=== PATIENT | male | born 1940 | race Caucasian/White ===

== ENCOUNTER → 2017-10-26 | Outpatient (CLI) | payer OTHER | LOC: BHFA 09:30 | PROVIDERS: ATTEND Internal Medicine Cardiovascular Disease | DX: I48.91 Unspecified atrial fibrillation (principal); R06.02 Shortness of breath | CPT/HCPCS: 78452; 93017; A9500 ==

== ENCOUNTER → 2017-11-02 | Outpatient (CLI) | payer OTHER | LOC: BHFA 10:45 | PROVIDERS: ATTEND Internal Medicine | DX: I48.91 Unspecified atrial fibrillation (principal) ==

== ENCOUNTER → 2017-11-03 | Outpatient (CLI) | payer OTHER | LOC: BHFA 10:45 | PROVIDERS: ATTEND Internal Medicine | DX: R42 Dizziness and giddiness (principal); E78.5 Hyperlipidemia, unspecified ==

== ENCOUNTER 2018-04-05 18:22 | Emergency (ER) | payer OTHER ==
--- NOTE | 2018-04-05 19:53 | EDPHY ---
H & P Stated Complaint: AVULSION TIP OF INDEX FINGER L HAND Time Seen by Provider: 04/05/18 18:38 HPI/ROS: CHIEF COMPLAINT: Finger injury HISTORY OF PRESENT ILLNESS: The patient is an anticoagulated and right-hand dominant 78 y/o male arriving with his complaining of an avulsion along the tip of his left index finger. 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 He has been able to control bleeding with direct pressure. No nail injury. No weakness, paresthesias, or other injuries. REVIEW OF SYSTEMS: A 10 point review of systems was performed and is negative with the exception of the elements mentioned in the history of present illness. Past medical history: Atrial fibrillation - Xarelto; hypertension; sleep apnea - CPAP Past surgical history: Noncontributory Family history: Noncontributory Social history: Right-handed. at bedside. Nonsmoker. Consultant In Ergonomics And Safety: Dr. Worley. PCP: Dr. Nehemias Kuhn. Adult Physical: General Appearance: Alert, no acute distress. Eyes: Pupils equal and round, no conjunctival injection, no discharge. Respiratory: Lungs are clear to auscultation; no wheezes, rales, or rhonchi. Cardiovascular: Irregularly irregular rate and rhythm; no murmur, rub, or gallop. Skin: Warm and dry, no rashes, normal color. Extremities: No lower extremity edema, no calf tenderness or swelling. Left hand: Avulsion injury to tip of left index finger, no active bleeding. No nail involvement. Normal flexion and extension of all digits. Normal sensation. Neurological: Alert and oriented. Moving all four extremities easily and equally. Psychiatric: Normal affect. - Personal History Current Tetanus Diphtheria and Acellular Pertussis (TDAP): Yes Tetanus Vaccine Date: WITHIN 10 Y - Medical/Surgical History Hx Asthma: No Hx Chronic Respiratory Disease: No Hx Diabetes: No Hx Cardiac Disease: Yes Hx Renal Disease: No Hx Cirrhosis: No Hx Alcoholism: No Hx HIV/AIDS: No Hx Splenectomy or Spleen Trauma: No Other PMH: A FIB - Social History Smoking Status: Never smoked Constitutional: Initial Vital Signs Temperature (C) 36.8 C 04/05/18 18:26 Heart Rate 114 H 04/05/18 18:26 Respiratory Rate 20 04/05/18 18:26 Blood Pressure 115/72 04/05/18 18:26 O2 Sat (%) 97 04/05/18 18:26 O2 Delivery Mode Room Air Allergies/Adverse Reactions: No Known Allergies Allergy (Unverified 09/20/10 11:26) Home Medications: Medication Instructions Recorded Digoxin [Lanoxin] 0.125 mg PO MOTUWETHFRSA 01/20/13 Losartan Potassium [Cozaar] 25 mg PO DAILY 01/20/13 Multivitamins [Tab-A-Mick] 1 each PO DAILY 01/20/13 Omeprazole [Prilosec 20 mg] 20 mg PO DAILY 01/20/13 Fluticasone Nasal [Flonase Nasal 1 sprays NASAL DAILY PRN 05/19/13 [place] (RX)] Rivaroxaban [Xarelto 10mg (RX)] 20 mg PO DAILY18 05/19/13 Metoprolol Succinate Xr [Toprol Xl 100 mg PO DAILY 06/20/13 50 mg (RX)] Medical Decision Making ED Course/Re-evaluation: Plan for wound care. Digital block performed by me. Wound then cleaned and dressed by ED hemodialysis technician. Wound care instructions given. Danger signs reviewed. Differential Diagnosis: Considered a differential diagnosis that includes but is not limited to fracture , dislocation, avulsion injury, laceration, retained foreign body. - Data Points Medications Given: Discontinued Medications Diphtheria/Tetanus/Acell Pertussis (Boostrix) 0.5 ml IM .ONCE ONE Stop: 04/05/18 20:40 Last Admin: 04/05/18 20:39 Dose: 0.5 ml Departure - Departure Disposition: Home, Routine, Self-Care Clinical Impression: Avulsion, finger tip Qualifiers: Encounter type: initial encounter Qualified Code(s): S61.209A - Unspecified open wound of unspecified finger without damage to nail, initial encounter Condition: Good Instructions: Skin Avulsion (ED) Additional Instructions: Keep bandage dry and in place for the next 24-48 hours. Afterwards, okay to clean the area gently with soap and water. Recommend covering with a thin layer of Bacitracin and a bandage while healing. Follow up with Dr. Carolina, orthopedist and hand specialist, for any difficulty during the healing process. Return to the ED for severe pain, fever, red streaking up your arm, dramatic increase in swelling, or any other worsening of condition. Referrals: Nehemias Kuhn MD [Primary Care Provider] - As per Instructions Enrico Carolina MD [Medical Doctor] - As per Instructions Report Scribed for: Maxine La Report Scribed by: Peg Worley Date of Report: 04/05/18 Time of Report: 19:53 Physician Review and Approval Statement: 04/08/18 08:30 Portions of this chart were entered by a medical accounting clerk. I personally performed the HPI, PE, and MDM. I have reviewed the documentation and agree with it, as evidenced by my signature.
[2018-04-05] MEDS ORDERED: TDAP ADULT 0.5 ML INJ (BOOSTRIX) IM ONE ×2 (20:11→20:39)
[2018-04-05 20:59] VITALS: BP 132/74
== END 2018-04-05 21:00 | disposition home or self-care (01) ==
PROC: 3E0T3BZ Introduction of Anesthetic Agent into Peripheral Nerves and Plexi, Percutaneous Approach (ICD-10-PCS; principal; 2018-04-05)
DX: S61.201A Unspecified open wound of left index finger without damage to nail, initial encounter (principal); I10 Essential (primary) hypertension; Z23 Encounter for immunization; Z79.01 Long term (current) use of anticoagulants; W26.8XXA Contact with other sharp object(s), not elsewhere classified, initial encounter

== ENCOUNTER → 2018-06-07 | Outpatient (CLI) | payer OTHER | LOC: BHFA 14:45 | PROVIDERS: ATTEND Internal Medicine Interventional Cardiology | DX: I48.91 Unspecified atrial fibrillation (principal); I42.9 Cardiomyopathy, unspecified; R60.9 Edema, unspecified ==

== ENCOUNTER → 2018-06-09 | Outpatient (CLI) | payer OTHER | LOC: BHFA 15:30 | PROVIDERS: ATTEND Internal Medicine Interventional Cardiology | DX: I50.9 Heart failure, unspecified (principal); I48.91 Unspecified atrial fibrillation; R06.02 Shortness of breath ==

== ENCOUNTER → 2018-06-13 | Outpatient (CLI) | payer OTHER | LOC: BHFA 11:45 | PROVIDERS: ATTEND Internal Medicine Interventional Cardiology | DX: I48.91 Unspecified atrial fibrillation (principal); I42.9 Cardiomyopathy, unspecified ==

== ENCOUNTER 2018-06-14 06:56 | Day surgery (SDC) | payer OTHER ==
[2018-06-14] MEDS ORDERED: MIDAZOLAM 2 MG/2 ML VIAL IVP ONE (06:59)
[2018-06-14] MEDS ORDERED: fentaNYL 100 MCG/2 ML INJ IVP ONE (06:59)
[2018-06-14] MEDS ORDERED: BENZOCAINE UNIT DOSE SPRAY HURRICAINE MM ONE (06:59)
[2018-06-14] MEDS ORDERED: ATROPINE SULFATE 1 MG/10 ML SYR IVP ONE (06:59)
[2018-06-14] MEDS ORDERED: NS 500 ML IV ONE (06:59)
[2018-06-14 07:40] LABS: INR 2.6 (0.83-1.16); PROTIME(PATIENT) 27.8 SEC (12.0-15.0)
--- NOTE | 2018-06-14 08:24 | POSTANESTH ---
Post Anesthetic Evaluation Cardiovascular Status: Normal, Stable, Similar to Pre-Op Cond Respiratory Status: Normal, Stable Level of Consciousness/Mental Status: Moderately Sleepy Pain Control: Adequate, Prn Tx Ordered Nausea/Vomiting Control: Adequate, Prn Tx Ordered Complications Possibly Related to Anesthesia: None Noted
--- NOTE | 2018-06-14 08:24 | PDANEPAE ---
ANE History of Present Illness a fib for LAYO/CV ANE Past Medical History - Cardiovascular History Hx Hypertension: Yes Hx Arrhythmias: Yes Hx Chest Pain: No Hx Coronary Artery / Peripheral Vascular Disease: No Hx CHF / Valvular Disease: Yes Hx Palpitations: Yes - Pulmonary History Hx COPD: No Hx Asthma/Reactive Airway Disease: No Hx Oxygen in Use at Home: No Hx Sleep Apnea: Yes - Endocrine History Hx Diabetes: No ANE Review of Systems Review of systems is: negative Review of Systems: - Exercise capacity Exercise capacity: >=4 METS ANE Patient History - Allergies Allergies/Adverse Reactions: No Known Allergies Allergy (Unverified 09/20/10 11:26) - Home Medications Home medications: home medication list seen and reviewed Home Medications: Digoxin [Lanoxin] 0.125 mg PO MOTUWETHFRSA 01/20/13 [Last Taken 06/13/18 07:30] Losartan Potassium [Cozaar] 25 mg PO DAILY 01/20/13 [Last Taken 06/13/18 07:30] Multivitamins [Tab-A-Mick] 1 each PO DAILY 01/20/13 [Last Taken 06/13/18 07:30] Omeprazole [Prilosec 20 mg] 20 mg PO DAILY 01/20/13 [Last Taken 06/13/18 07:30] Fluticasone Nasal [Flonase Nasal [place] (RX)] 1 sprays NASAL DAILY PRN 05/19/13 [ Last Taken 06/20/13] Rivaroxaban [Xarelto 10mg (RX)] 20 mg PO DAILY18 05/19/13 [Last Taken 06/14/18 07:00] Metoprolol Succinate Xr [Toprol Xl 50 mg (RX)] 100 mg PO DAILY 06/20/13 [Last Taken 06/14/18 06:30] Lasix 06/14/18 [Last Taken 06/13/18 18:00] - Anes Hx Anes Hx: no prior problems - Smoking Hx Smoking Status: Never smoked ANE Labs/Vital Signs - Labs Result Diagrams: 06/14/18 07:20 - Vital Signs Height: 177.8 cm Weight: 82.1 kg ANE Physical Exam - Airway Neck exam: FROM Mallampati Score: Class 1 Mouth exam: normal dental/mouth exam - Pulmonary Pulmonary: no respiratory distress - Cardiovascular Cardiovascular: regular rate and rhythym - ASA Status ASA Status: III ANE Anesthesia Plan Anesthesia Plan: GA with mask
[2018-06-14] MEDS ORDERED: PROPOFOL 200 MG/20 ML VIAL ONE (08:27)
--- NOTE | 2018-06-14 08:35 | PDHPUP ---
History & Physical Update H&P update statement: This history and physical update is based on an assessment of the patient which was completed after admission or registration (within 24 hours), but prior to the surgery/procedure. H&P update: H&P reviewed & patient examined, no change in patient's condition since H&P completed
[2018-06-14] MEDS ORDERED: AMIODARONE HCL 100 ML IV ONE ×4 (08:52→10:15)
--- NOTE | 2018-06-14 08:57 | PDTEE1 ---
LAYO Cardioversion Procedure Procedural Details: Pads were placed in anterior-posterior position. LAYO probe was advanced and standard images obtained. There is no evidence of left atrial or left atrial appendage thrombus. Synchronized cardioversion attempt #1: 200J Synchronized cardioversion attempt #2: 360J Results: normal sinus rhythm Conclusion Comment: Severe dilated cardiomyopathy with moderate to severe functional mitral regurgitation. Likely rate related. Return to sinus with persistant intermittant afib. Load amiodarone 150 mg iv now with 200 mg bid. Add aldactone Patient Problems: Problems Problem Status Onset Atrial fibrillation and flutter Active Jaundice Active Cholecystitis chronic, acute Acute Avulsion, finger tip Acute
[2018-06-14] MEDS ORDERED: AMIODARONE HCL 200 MG TAB PO SCH (09:00)
[2018-06-14] MEDS ORDERED: SPIRONOLACTONE 25 MG TAB PO SCH (09:00)
--- NOTE | 2018-06-14 16:52 | CPEKG ---
Test Reason : OPEN Blood Pressure : / mmHG Vent. Rate : 122 BPM Atrial Rate : 138 BPM P-R Int : 176 ms QRS Dur : 087 ms QT Int : 310 ms P-R-T Axes : 000 003 000 degrees QTc Int : 442 ms Atrial fibrillation Ventricular premature complex Consider left ventricular hypertrophy Nonspecific T abnormalities, lateral leads When compared with ECG of 01/21/2013 AF now present Confirmed by Ania English ([id number]) on 06/14/2018 4:52:26 PM Referred By: Confirmed By:Ania English
--- NOTE | 2018-06-14 16:56 | CPEKG ---
Test Reason : OPEN Blood Pressure : / mmHG Vent. Rate : 084 BPM Atrial Rate : 085 BPM P-R Int : 170 ms QRS Dur : 102 ms QT Int : 393 ms P-R-T Axes : 054 -03 102 degrees QTc Int : 465 ms Sinus rhythm Atrial premature complexes Borderline T wave abnormalities Compared with previous tracing dated 06/14/2018 at 7:16 a.m., sinus rhythm has been restored Confirmed by Ania English ([id number]) on 06/14/2018 4:56:19 PM Referred By: Confirmed By:Ania English
--- NOTE | 2018-06-14 16:57 | CPEKG ---
Test Reason : OPEN Blood Pressure : / mmHG Vent. Rate : 087 BPM Atrial Rate : 087 BPM P-R Int : 169 ms QRS Dur : 110 ms QT Int : 401 ms P-R-T Axes : 079 -10 058 degrees QTc Int : 483 ms Sinus rhythm prolonged QT interval Confirmed by Ania English ([id number]) on 06/14/2018 4:56:46 PM Referred By: Confirmed By:Ania English
--- NOTE | 2018-06-14 16:58 | CPEKG ---
Test Reason : OPEN Blood Pressure : / mmHG Vent. Rate : 128 BPM Atrial Rate : 129 BPM P-R Int : 083 ms QRS Dur : 085 ms QT Int : 418 ms P-R-T Axes : 262 -25 -88 degrees QTc Int : 610 ms Ectopic atrial tachycardia Prolonged QT interval compared with 06/14/2018 at 9:03 a.m. ectopic atrial tachycardia now present Confirmed by Ania English ([id number]) on 06/14/2018 4:58:03 PM Referred By: Confirmed By:Ania English
== END 2018-06-14 11:46 | disposition home or self-care (01) ==
LOC: FCATH 06:56
PROVIDERS: ATTEND Internal Medicine Interventional Cardiology
PROC: B245ZZ4 Ultrasonography of Left Heart, Transesophageal (ICD-10-PCS; principal; 2018-06-14)
PROC: 5A2204Z Restoration of Cardiac Rhythm, Single (ICD-10-PCS; principal; 2018-06-14)
DX: I48.1 Persistent atrial fibrillation (principal); I42.0 Dilated cardiomyopathy; I34.0 Nonrheumatic mitral (valve) insufficiency; I50.20 Unspecified systolic (congestive) heart failure
CPT/HCPCS: J0282; J2704

== ENCOUNTER 2018-08-01 13:05 | Day surgery (SDC) | payer OTHER ==
[2018-08-01] MEDS ORDERED: NS 500 ML IV ONE (13:18)
[2018-08-01] MEDS ORDERED: MIDAZOLAM 2 MG/2 ML VIAL IVP ONE (13:18)
[2018-08-01] MEDS ORDERED: fentaNYL 100 MCG/2 ML INJ IVP ONE (13:18)
[2018-08-01] MEDS ORDERED: ATROPINE SULFATE 1 MG/10 ML SYR IVP ONE (13:18)
--- NOTE | 2018-08-01 14:05 | PDANEPAE ---
ANE History of Present Illness Cardioversion ANE Past Medical History - Cardiovascular History Hx Hypertension: Yes Hx Arrhythmias: Yes Hx Chest Pain: No Hx Coronary Artery / Peripheral Vascular Disease: No Hx CHF / Valvular Disease: Yes Hx Palpitations: Yes - Pulmonary History Hx COPD: No Hx Asthma/Reactive Airway Disease: No Hx Oxygen in Use at Home: No Hx Sleep Apnea: Yes - Endocrine History Hx Diabetes: No - GI History GERD: mild ANE Review of Systems Review of systems is: negative Review of Systems: - Exercise capacity Exercise capacity: >=4 METS ANE Patient History - Allergies Allergies/Adverse Reactions: No Known Allergies Allergy (Unverified 09/20/10 11:26) - Home Medications Home medications: home medication list seen and reviewed Home Medications: Digoxin [Lanoxin] 0.125 mg PO MOTUWETHFRSA 01/20/13 [Last Taken 06/13/18 07:30] Losartan Potassium [Cozaar] 50 mg PO DAILY 01/20/13 [Last Taken 06/13/18 07:30] Multivitamins [Tab-A-Mick] 1 each PO DAILY 01/20/13 [Last Taken 06/13/18 07:30] Omeprazole [Prilosec 20 mg] 20 mg PO DAILY 01/20/13 [Last Taken 06/13/18 07:30] Fluticasone Nasal [Flonase Nasal [place] (RX)] 1 sprays NASAL DAILY PRN 05/19/13 [ Last Taken 06/20/13] Rivaroxaban [Xarelto 10mg (RX)] 20 mg PO DAILY18 05/19/13 [Last Taken 06/14/18 07:00] Metoprolol Succinate Xr [Toprol Xl 50 mg (RX)] 100 mg PO DAILY 06/20/13 [Last Taken 06/14/18 06:30] Lasix 20 mg PO DAILY 06/14/18 [Last Taken 06/13/18 18:00] Aldactone 25 mg PO DAILY 08/01/18 [Last Taken Unknown] Amiodarone HCl 200 mg PO 08/01/18 [Last Taken Unknown] Cozaar 50 mg PO DAILY 08/01/18 [Last Taken Unknown] Iron 65 mg PO DAILY 08/01/18 [Last Taken Unknown] Robaxin 500 mg (*) 500 mg PO 08/01/18 [Last Taken Unknown] - NPO status NPO Since - Solids (Date): 08/01/18 NPO Since - Solids (Time): 06:30 - Anes Hx Anes Hx: no prior problems - Smoking Hx Smoking Status: Never smoked - Family Anes Hx Family Anes Hx: none ANE Labs/Vital Signs - Labs Result Diagrams: 08/01/18 13:35 - Vital Signs Vital Signs: reviewed preoperatively; see RN documention for details Height: 180 cm Weight: 78.9 kg ANE Physical Exam - Airway Neck exam: FROM Mallampati Score: Class 2 Mouth exam: normal dental/mouth exam - Pulmonary Pulmonary: no respiratory distress - Cardiovascular Cardiovascular: irregularly irregular - ASA Status ASA Status: III
[2018-08-01 14:24] LABS: INR 1.29 (0.83-1.16); PROTIME(PATIENT) 16.3 SEC (12.0-15.0)
[2018-08-01] MEDS ORDERED: PROPOFOL 200 MG/20 ML VIAL ONE (15:20)
--- NOTE | 2018-08-01 15:32 | PDTEE1 ---
LAYO Cardioversion Procedure Procedure: electrical cardioversion Indications: atrial fibrillation Anticoagulation: xarelto Procedural Details: Pads were placed in anterior-posterior position. Synchronized cardioversion attempt #1: 200J Synchronized cardioversion attempt #2: 300J Results: normal sinus rhythm Patient Problems: Problems Problem Status Onset Atrial fibrillation and flutter Active Jaundice Active Cholecystitis chronic, acute Acute Avulsion, finger tip Acute
--- NOTE | 2018-08-01 15:50 | POSTANESTH ---
Post Anesthetic Evaluation Cardiovascular Status: Normal, Stable Respiratory Status: Normal, Stable Level of Consciousness/Mental Status: Can Participate in Eval Pain Control: Adequate, Prn Tx Ordered Nausea/Vomiting Control: Adequate, Prn Tx Ordered Complications Possibly Related to Anesthesia: None Noted
--- NOTE | 2018-08-01 17:16 | CPEKG ---
Test Reason : OPEN Blood Pressure : / mmHG Vent. Rate : 067 BPM Atrial Rate : 000 BPM P-R Int : 241 ms QRS Dur : 097 ms QT Int : 583 ms P-R-T Axes : 000 -05 006 degrees QTc Int : 616 ms Atrial fibrillation Prolonged QT interval Confirmed by Paige Yang ([id number]) on 08/01/2018 5:16:21 PM Referred By: Confirmed By:Paige Yang
--- NOTE | 2018-08-01 17:17 | CPEKG ---
Test Reason : OPEN Blood Pressure : / mmHG Vent. Rate : 054 BPM Atrial Rate : 056 BPM P-R Int : 197 ms QRS Dur : 125 ms QT Int : 539 ms P-R-T Axes : 048 -08 016 degrees QTc Int : 511 ms Sinus rhythm Atrial premature complex Nonspecific intraventricular conduction delay Minimal ST depression, lateral leads Confirmed by Paige Yang ([id number]) on 08/01/2018 5:17:20 PM Referred By: Confirmed By:Paige Yang
== END 2018-08-01 17:03 | disposition home or self-care (01) ==
LOC: FCATH 13:05
PROVIDERS: ATTEND Internal Medicine Interventional Cardiology
PROC: 5A2204Z Restoration of Cardiac Rhythm, Single (ICD-10-PCS; principal; 2018-08-01)
DX: I48.91 Unspecified atrial fibrillation (principal)
CPT/HCPCS: J2704

== ENCOUNTER 2018-08-31 09:37 | Day surgery (SDC) | payer OTHER ==
--- NOTE | 2018-08-31 10:09 | PDANEPAE ---
ANE Past Medical History - Cardiovascular History Hx Hypertension: Yes Hx Arrhythmias: Yes Hx Chest Pain: No Hx Coronary Artery / Peripheral Vascular Disease: No Hx CHF / Valvular Disease: Yes Hx Palpitations: Yes Cardiovascular History Comment: ATRIAL FIBRILLATION. CARDIOVERSION X2 MOST RECENT 08/08/18 - Pulmonary History Hx COPD: No Hx Asthma/Reactive Airway Disease: No Hx Recent Upper Respiratory Infection: No Hx Oxygen in Use at Home: No Hx Sleep Apnea: Yes Sleep Apnea Screening Result - Last Documented: Positive Pulmonary History Comment: UBALDO USES BIPAP - Neurologic History Hx Cerebrovascular Accident: No Hx Seizures: No Hx Dementia: No - Endocrine History Hx Diabetes: No - Renal History Hx Renal Disorders: No - Liver History Hx Hepatic Disorders: No - Neurological & Psychiatric Hx Hx Neurological and Psychiatric Disorders: No - Cancer History Hx Cancer: No - Congenital Disorder History Hx Congenital Disorders: No - GI History Hx Gastrointestinal Disorders: Yes Gastrointestinal History Comment: GERD. PREV COLONOSCOPY - Other Health History Other Health History: OSTEOARTHRITIS. NEW ANEMIA DX'D WITH RECENT. BLOOD TESTING - Chronic Pain History Chronic Pain: No - Surgical History Prior Surgeries: CARDIOVERSION 08/08/18. LT TOTAL KNEE. GIBSON. DAVIN SHLDR RTC. RT ING HERNIA. DAVIN CATARACT ANE Review of Systems Review of Systems: - Exercise capacity METS (RN): 4 METS ANE Patient History - Allergies Allergies/Adverse Reactions: No Known Allergies Allergy (Unverified 09/20/10 11:26) - Home Medications Home Medications: Digoxin [Lanoxin] 0.125 mg PO MOTUWETHFRSA 01/20/13 [Last Taken 08/01/18 07:00] Losartan Potassium [Cozaar] 25 mg PO DAILY 01/20/13 [Last Taken 08/01/18 07:00] Multivitamins [Tab-A-Mick] 1 each PO DAILY 01/20/13 [Last Taken 08/01/18 07:00] Omeprazole [Prilosec 20 mg] 20 mg PO DAILY 01/20/13 [Last Taken 08/01/18 07:00] Fluticasone Nasal [Flonase Nasal [place] (RX)] 1 sprays NASAL DAILY PRN 05/19/13 [ Last Taken 06/20/13] Rivaroxaban [Xarelto 10mg (RX)] 20 mg PO DAILY18 05/19/13 [Last Taken 07/31/18 17:30] Metoprolol Succinate Xr [Toprol Xl 50 mg (RX)] 100 mg PO DAILY 06/20/13 [Last Taken 08/01/18 07:00] Lasix 20 mg PO DAILY 06/14/18 [Last Taken 07/31/18 08:00] Aldactone 25 mg PO DAILY 08/01/18 [Last Taken 07/31/18 08:00] Amiodarone HCl 200 mg PO BID 08/01/18 [Last Taken 08/01/18 07:00] Iron 65 mg PO BID 08/01/18 [Last Taken 08/01/18 07:00] - NPO status NPO Since - Liquids (Date): 08/31/18 NPO Since - Liquids (Time): 08:00 NPO Since - Solids (Date): 08/30/18 NPO Since - Solids (Time): 20:00 - Smoking Hx Smoking Status: Never smoked ANE Labs/Vital Signs - Vital Signs Blood Pressure: 132/63 Heart Rate: 61 Respiratory Rate: 18 O2 Sat (%): 97 Height: 180.34 cm Weight: 79.832 kg ANE Physical Exam - Airway Neck exam: FROM Mallampati Score: Class 1 Mouth exam: normal dental/mouth exam - Pulmonary Pulmonary: clear to auscultation - Cardiovascular Cardiovascular: regular rate and rhythym - ASA Status ASA Status: III ANE Anesthesia Plan Anesthesia Plan: general endotracheal anesthesia, MAC
[2018-08-31] MEDS ORDERED: PROPOFOL/EMULSION 500 MG/50 ML BOTTLE IV ONE (10:14)
[2018-08-31] MEDS ORDERED: fentaNYL 100 MCG/2 ML INJ ONE (10:14)
[2018-08-31] MEDS ORDERED: LR 1,000 ML IV ONE (10:19)
--- NOTE | 2018-08-31 10:26 | PDGENHP ---
History & Physical Chief Complaint: iron deficiency anemia History of Present Illness: 78 yo male with new onset iron deficiency anemia. Episodic hematochezia. Pertinent Past, Social, Family History: CHF. Atrial fibrillation on xarelto. FH: negative for colon cancer. SH: No tobacco or ETOH Relevant Physical Exam: NAD. CTA B/L. RRR without m/r/g. GI soft. NABS. NT/ND Cardiorespiratory Assessment: REBECCA. EGD/Colonoscopy with MAC. ASA IV
[2018-08-31] MEDS ORDERED: HYDROCODONE/APAP 5/325 TAB PO PRN (10:38)
[2018-08-31] MEDS ORDERED: NALOXONE HCL 0.4 MG/ML INJ IVP PRN (10:38)
[2018-08-31] MEDS ORDERED: oxyCODONE IR 5 MG TAB PO PRN (10:38)
[2018-08-31] MEDS ORDERED: ONDANSETRON 4 MG/2 ML VIAL IVP PRN (10:38)
[2018-08-31] MEDS ORDERED: ACETAMINOPHEN 500 MG TAB PO PRN (10:38)
[2018-08-31] MEDS ORDERED: PROMETHAZINE HCL 25 MG/ML INJ IVP PRN (10:38)
[2018-08-31] MEDS ORDERED: DEXAMETHASONE 4 MG/ML VIAL IVP PRN (10:38)
[2018-08-31] MEDS ORDERED: fentaNYL 100 MCG/2 ML INJ IVP PRN (10:38)
--- NOTE | 2018-08-31 10:46 | GIREPORT ---
[facility] Surgical Services - Endoscopy Department Patient Name: Florencio Alvarado Procedure Date: 08/31/2018 10:26 AM Patient Type: Outpatient Attending MD/ ER Physician: Milton Caba MD Procedure: Upper GI endoscopy Indications: Iron deficiency anemia Providers: Milton Caba MD Medicines: Propofol per Anesthesia Complications: No immediate complications. Description of Procedure: After obtaining informed consent, the endoscope was passed under direct vision. Throughout the procedure, the patient's blood pressure, pulse, and oxygen saturations were monitored continuously. The Endoscope was intro duced through the mouth, and advanced to the second part of duodenum. [facility] er GI endoscopy was accomplished without difficulty. The patient tolerated th e procedure well. Findings: A non-obstructing Schatzki ring was found at the gastroesophageal junct ion. Multiple 10 to 20 mm pedunculated and sessile polyps with no bleeding a nd no stigmata of recent bleeding were found in the gastric fundus and in the gastric body. Biopsies were taken with a cold forceps for histology. The duodenal bulb, first portion of the duodenum and second portion of the duodenum were normal. Biopsies for histology were taken with a cold for ceps for evaluation of celiac disease. Estimated Blood Loss: Estimated blood loss: none. Estimated blood loss was minimal. Post Op Diagnosis: - Non-obstructing Schatzki ring. - Multiple gastric polyps. Biopsied. - Normal duodenal bulb, first portion of the duodenum and second portio n of the duodenum. Biopsied. - No cause for bleeding or iron deficiency anemia. - The gastric polyposis is quite diffuse and prominent but I feel benig n and not likely causing iron deficiency. Random biopsies of the gastric poly ps were taken to ensure they are fundic gland and benign. - The gastric polyposis is so diffuse as not to be endoscopically curab le (there would be no adequate way to remove all of these polyps endoscopically). - Hopefully the biopsies will be reassuringly fundic gland and therefor e not in need of resection. Recommendation: - Await pathology results. - Resume previous diet. - Continue present medications. - Patient has a contact number available for emergencies. The signs and symptoms of potential delayed complications were discussed with the pat ient. Return to normal activities tomorrow. Written discharge instructions we re provided to the patient. - Perform a colonoscopy today. - Thank you for allowing me to be involved in the care of your patient. - Return to referring physician as previously scheduled. - Thank you for allowing me to be involved in the care of your patient. Attending Participation: I personally performed the entire procedure without the assistance of a fellow, resident or surg ical microbiology lab assistant. Milton Caba MD Milton Caba MD 08/31/2018 10:45:30 AM This report has been signed electronicallyDavid MD Rosales Number of Addenda: 0 Note Initiated On: 08/31/2018 10:26 AM [email or web address]
--- NOTE | 2018-08-31 11:00 | GIREPORT ---
[facility] Surgical Services - Endoscopy Department Patient Name: Florencio Alvarado Procedure Date: 08/31/2018 10:27 AM Patient Type: Outpatient Attending / ER Physician: Milton Caba MD Procedure: Colonoscopy Indications: Iron deficiency anemia Providers: Milton Caba MD Medicines: Propofol per Anesthesia Complications: No immediate complications. Description of Procedure: After obtaining informed consent, the scope was passed under direct vis ion. Throughout the procedure, the patient's blood pressure, pulse, and oxyg en saturations were monitored continuously. The Colonoscope with irrigatio n channel was introduced through the anus and advanced to the cecum, identified by appendiceal orifice and ileocecal valve. The colonoscopy was performed without difficulty. The patient tolerated the procedure well. The quality of the bowel preparation was excellent. The ileocecal valve, appendiceal orifice, and rectum were photographed. Findings: Hemorrhoids were found on perianal exam. The digital rectal exam was normal. Pertinent negatives include normal sphincter tone and no palpable rectal lesions. Multiple small and large-mouthed diverticula were found in the sigmoid colon. The exam was otherwise without abnormality. Estimated Blood Loss: Estimated blood loss: none. Post Op Diagnosis: - Hemorrhoids found on perianal exam. - Diverticulosis in the sigmoid colon. - The examination was otherwise normal. - No specimens collected. Recommendation: - Repeat colonoscopy is not recommended for screening purposes. - Return to referring physician as previously scheduled. - Resume previous diet. - Continue present medications. - Resume Xarelto (rivaroxaban) at prior dose tomorrow. Refer to referri physician for further adjustment of therapy. - Thank you for allowing me to be involved in the care of your patient. Attending Participation: I personally performed the entire procedure without the assistance of a fellow, resident or surg ical assistant business manager. Milton Caba MD Milton Caba MD 08/31/2018 10:59:54 AM This report has been signed electronicallyDavid MD Rosales Number of Addenda: 0 Note Initiated On: 08/31/2018 10:27 AM Total Procedure Duration Time 0 hours 9 minutes 33 seconds [email or web address]
[2018-08-31 13:05] VITALS: BP 130/69
== END 2018-08-31 13:00 | disposition home or self-care (01) ==
LOC: FSGY 09:37
PROVIDERS: ATTEND Internal Medicine Gastroenterology
PROC: 0DJD8ZZ Inspection of Lower Intestinal Tract, Via Natural or Artificial Opening Endoscopic (ICD-10-PCS; principal; 2018-08-31 11:00)
PROC: 0DB68ZX Excision of Stomach, Via Natural or Artificial Opening Endoscopic, Diagnostic (ICD-10-PCS; 2018-08-31 11:00)
PROC: 0DB98ZX Excision of Duodenum, Via Natural or Artificial Opening Endoscopic, Diagnostic (ICD-10-PCS; 2018-08-31 11:00)
DX: K31.7 Polyp of stomach and duodenum (principal); D50.9 Iron deficiency anemia, unspecified
CPT/HCPCS: J2704; J3010

== ENCOUNTER 2018-11-01 13:54 | Day surgery (SDC) | payer OTHER ==
[2018-11-01] MEDS ORDERED: LR 1,000 ML IV ONE (14:28)
[2018-11-01] MEDS ORDERED: LIDOCAINE 1% 2 ML INJ ID PRN (14:28)
--- NOTE | 2018-11-01 15:05 | PDGENHP ---
History & Physical Chief Complaint: Iron deficiency anemia History of Present Illness: 78 yo male with iron deficiency anemia. Pertinent Past, Social, Family History: PMH: CAD, atrial fibrillation s/p cardiac ablation, HTN. PSH: Cardiac ablation, hernia repair, bilateral rotator cuff surgery. SH: No tob, rare ETOH. FH: CRC cousin Relevant Physical Exam: NAD. RRR without m/r/g. CTA B/L. Soft. NT/ND. NABS Cardiorespiratory Assessment: REBECCA. EGD with MAC and IV sedation. ASA III
--- NOTE | 2018-11-01 15:11 | PDANEPAE ---
ANE History of Present Illness egd ANE Past Medical History - Cardiovascular History Hx Hypertension: Yes Hx Arrhythmias: Yes Hx Chest Pain: No Hx Coronary Artery / Peripheral Vascular Disease: No Hx CHF / Valvular Disease: Yes Hx Palpitations: Yes Cardiovascular History Comment: ATRIAL FIBRILLATION. CARDIOVERSION X2 MOST RECENT 08/08/18. ABLATION X 2. CARDIOMYOPATHY. MV ISSUES. EF 20-25% - Pulmonary History Hx COPD: No Hx Asthma/Reactive Airway Disease: No Hx Recent Upper Respiratory Infection: No Hx Oxygen in Use at Home: No Hx Sleep Apnea: Yes Sleep Apnea Screening Result - Last Documented: Positive Pulmonary History Comment: UBALDO USES BIPAP - Neurologic History Hx Cerebrovascular Accident: No Hx Seizures: No Hx Dementia: No - Endocrine History Hx Diabetes: No Hypothyroid: No Hyperthyroid: No Obesity: mild - Renal History Hx Renal Disorders: No - Liver History Hx Hepatic Disorders: No - Neurological & Psychiatric Hx Hx Neurological and Psychiatric Disorders: No - Cancer History Hx Cancer: No - Congenital Disorder History Hx Congenital Disorders: No - GI History Hx Gastrointestinal Disorders: Yes Gastrointestinal History Comment: GERD. PREV COLONOSCOPY - Other Health History Other Health History: OSTEOARTHRITIS. DRY SKIN. ANEMIA - Chronic Pain History Chronic Pain: No - Surgical History Prior Surgeries: CARDIOVERSION 08/08/18. LT TOTAL KNEE. GIBSON. DAVIN SHLDR RTC. RT ING HERNIA. DAVIN CATARACT ANE Review of Systems Review of Systems: - Exercise capacity Exercise capacity: >=4 METS METS (RN): 4 METS ANE Patient History - Allergies Allergies/Adverse Reactions: No Known Allergies Allergy (Verified 10/03/18 16:46) - Home Medications Home medications: home medication list seen and reviewed Home Medications: Digoxin [Lanoxin] 01/20/13 [Last Taken 11/01/18 07:30] Losartan Potassium [Cozaar] 01/20/13 [Last Taken 1 Day Ago ~10/31/18] Multivitamins [Tab-A-Mick] 01/20/13 [Last Taken 08/01/18 07:00] Omeprazole [Prilosec 20 mg] 01/20/13 [Last Taken 11/01/18 07:30] Fluticasone Nasal [Flonase Nasal [place] (RX)] 05/19/13 [Last Taken 06/20/13] Rivaroxaban [Xarelto 10mg (RX)] 05/19/13 [Last Taken 10/15/18] Metoprolol Succinate Xr [Toprol Xl 50 mg (RX)] 06/20/13 [Last Taken 11/01/18 07 :30] Lasix 06/14/18 [Last Taken 11/01/18 07:30] Aldactone 08/01/18 [Last Taken 07/31/18 08:00] Amiodarone HCl 08/01/18 [Last Taken 11/01/18 07:30] Iron 08/01/18 [Last Taken 08/01/18 07:00] Spironolactone 11/01/18 [Last Taken 11/01/18 07:30] - NPO status NPO Status: no food or drink >8 hours NPO Since - Liquids (Date): 11/01/18 NPO Since - Liquids (Time): 06:00 NPO Since - Solids (Date): 10/31/18 NPO Since - Solids (Time): 23:00 - Smoking Hx Smoking Status: Never smoked - Family Anes Hx Family Hx Anesthesia Complications: NONE ANE Labs/Vital Signs - Vital Signs Blood Pressure: 139/69 Heart Rate: 52 Respiratory Rate: 20 O2 Sat (%): 95 Height: 180.34 cm Weight: 79.379 kg ANE Physical Exam - Airway Mallampati Score: Class 2 Mouth exam: normal dental/mouth exam - Pulmonary Pulmonary: no respiratory distress - Cardiovascular Cardiovascular: irregularly irregular - ASA Status ASA Status: III ANE Anesthesia Plan Anesthesia Plan: general endotracheal anesthesia (dr anay CASTANEDA)
[2018-11-01] MEDS ORDERED: fentaNYL 100 MCG/2 ML INJ ONE (15:16)
[2018-11-01] MEDS ORDERED: ROCURONIUM 50 MG/5 ML VIAL ONE (15:16)
[2018-11-01] MEDS ORDERED: SUCCINYLCHOLINE CHLORIDE 200 MG/10 ML SYR IVP ONE (15:17)
[2018-11-01] MEDS ORDERED: LIDOCAINE 2% 5 ML SDV ONE (15:17)
[2018-11-01] MEDS ORDERED: SUGAMMADEX SODIUM 200 MG/2 ML VIAL IVP ONE (15:35)
[2018-11-01] MEDS ORDERED: LR 500 ML IV PRN (15:36)
[2018-11-01] MEDS ORDERED: ACETAMINOPHEN 500 MG TAB PO PRN (15:36)
[2018-11-01] MEDS ORDERED: fentaNYL 100 MCG/2 ML INJ IVP PRN (15:36)
[2018-11-01] MEDS ORDERED: ONDANSETRON 4 MG/2 ML VIAL IVP PRN (15:36)
[2018-11-01] MEDS ORDERED: NALOXONE HCL 0.4 MG/ML INJ IVP PRN (15:36)
[2018-11-01] MEDS ORDERED: ALBUTEROL 3 ML DEYVIAL IH PRN (15:36)
--- NOTE | 2018-11-01 16:01 | GIREPORT ---
[facility] Surgical Services - Endoscopy Department Patient Name: Florencio Alvarado Procedure Date: 11/01/2018 3:07 PM Patient Type: Outpatient Attending MD/ ER Physician: Milton Caba MD Procedure: Upper GI endoscopy Indications: Follow-up of gastric polyps, For therapy of gastric polyps Providers: Milton Caba MD Medicines: General Anesthesia Complications: No immediate complications. Description of Procedure: After obtaining informed consent, the endoscope was passed under direct vision. Throughout the procedure, the patient's blood pressure, pulse, and oxygen saturations were monitored continuously. The Endoscope was intro duced through the mouth, and advanced to the second part of duodenum. The [facility] er GI endoscopy was accomplished without difficulty. The patient tolerated th e procedure well. Findings: The esophagus was normal. Multiple large pedunculated and sessile polyps with no bleeding and no stigmata of recent bleeding were found in the gastric fundus and in the gastric body. The largest of the gastric polyps were removed with a hot snare at 20 chung. A total of 18 polyps were removed today. Polyp resec tion was incomplete. The resected tissue was retrieved using a Giraldo net. The examined duodenum was normal. Estimated Blood Loss: Estimated blood loss was minimal. Post Op Diagnosis: - Normal esophagus. - Multiple gastric polyps. The largest of the polyps were resected toda y by hot snare. All the polyps were not completely resected today (intentionally). Resected tissue retrieved. - Normal examined duodenum. Recommendation: - Await pathology results. - Repeat upper endoscopy (date not yet determined) for surveillance bas ed on pathology results. - No aspirin, ibuprofen, naproxen, or other non-steroidal anti-inflamma tory drugs for 2 weeks after polyp removal. - Resume Xarelto (rivaroxaban) at prior dose in 3 days. Refer to referr ing physician for further adjustment of therapy. - Resume previous diet. - Continue present medications. - Patient has a contact number available for emergencies. The signs and symptoms of potential delayed complications were discussed with the pat ient. Return to normal activities tomorrow. Written discharge instructions we re provided to the patient. - Thank you for allowing me to be involved in the care of your patient. Attending Participation: I personally performed the entire procedure without the assistance of a fellow, resident or surg ical fish hatchery assistant. Milton Caba MD Milton Caba MD 11/01/2018 4:00:01 PM This report has been signed electronicallyDavid MD Rosales Number of Addenda: 0 Note Initiated On: 11/01/2018 3:07 PM [email or web address]
[2018-11-01 16:52] VITALS: BP 134/68
== END 2018-11-01 17:32 | disposition home or self-care (01) ==
LOC: FSGY 13:54
PROVIDERS: ATTEND Internal Medicine Gastroenterology
PROC: 0DB68ZZ Excision of Stomach, Via Natural or Artificial Opening Endoscopic (ICD-10-PCS; principal; 2018-11-01 15:15)
DX: K31.7 Polyp of stomach and duodenum (principal); D50.9 Iron deficiency anemia, unspecified
CPT/HCPCS: J0330; J3010

== ENCOUNTER 2018-12-06 09:11 | Day surgery (SDC) | payer OTHER ==
[2018-12-06] MEDS ORDERED: BENZOCAINE UNIT DOSE SPRAY HURRICAINE MM ONE (09:15)
[2018-12-06] MEDS ORDERED: MIDAZOLAM 2 MG/2 ML VIAL IVP ONE (09:15)
[2018-12-06] MEDS ORDERED: NS 500 ML IV ONE (09:15)
[2018-12-06] MEDS ORDERED: ATROPINE SULFATE 1 MG/10 ML SYR IVP ONE (09:15)
[2018-12-06] MEDS ORDERED: fentaNYL 100 MCG/2 ML INJ IVP ONE (09:15)
[2018-12-06 09:59] LABS: INR 1.71 (0.83-1.16); PROTIME(PATIENT) 19.3 SEC (12.0-15.0)
[2018-12-06] MEDS ORDERED: ATROPINE SULFATE 1 MG/10 ML SYR ONE (11:23)
[2018-12-06] MEDS ORDERED: PROPOFOL 200 MG/20 ML VIAL ONE (12:03)
[2018-12-06] MEDS ORDERED: NALOXONE HCL 0.4 MG/ML INJ IVP PRN (12:08)
--- NOTE | 2018-12-06 12:08 | PDANEPAE ---
ANE History of Present Illness a-fib with rvr ANE Past Medical History - Cardiovascular History Hx Hypertension: Yes Hx Arrhythmias: Yes Hx Chest Pain: No Hx Coronary Artery / Peripheral Vascular Disease: No Hx CHF / Valvular Disease: Yes Hx Palpitations: Yes Cardiovascular History Comment: ATRIAL FIBRILLATION. CARDIOVERSION X2 MOST RECENT 08/08/18. ABLATION X 2. CARDIOMYOPATHY. MV ISSUES. EF 20-25% - Pulmonary History Hx COPD: No Hx Asthma/Reactive Airway Disease: No Hx Recent Upper Respiratory Infection: No Hx Oxygen in Use at Home: No Hx Sleep Apnea: Yes Pulmonary History Comment: UBALDO USES BIPAP - Neurologic History Hx Cerebrovascular Accident: No Hx Seizures: No Hx Dementia: No - Endocrine History Hx Diabetes: No Hypothyroid: No Hyperthyroid: No Obesity: no - Renal History Hx Renal Disorders: No - Liver History Hx Hepatic Disorders: No - Neurological & Psychiatric Hx Hx Neurological and Psychiatric Disorders: No - Cancer History Hx Cancer: No - Congenital Disorder History Hx Congenital Disorders: No - GI History GERD: mild Hx Gastrointestinal Disorders: Yes Gastrointestinal History Comment: GERD. PREV COLONOSCOPY - Other Health History Other Health History: OSTEOARTHRITIS. DRY SKIN. ANEMIA - Chronic Pain History Chronic Pain: No - Surgical History Prior Surgeries: CARDIOVERSION 08/08/18. LT TOTAL KNEE. GIBSON. DAVIN SHLDR RTC. RT ING HERNIA. DAVIN CATARACT ANE Review of Systems Review of systems is: negative Review of Systems: - Exercise capacity Exercise capacity: >=4 METS ANE Patient History - Allergies Allergies/Adverse Reactions: No Known Allergies Allergy (Verified 10/03/18 16:46) - Home Medications Home medications: home medication list seen and reviewed Home Medications: Digoxin [Lanoxin] 125 mcg PO DAILY 01/20/13 [Last Taken 12/06/18 08:00] Losartan Potassium [Cozaar] 25 mg PO DAILY 01/20/13 [Last Taken 12/06/18 08:00] Multivitamins [Tab-A-Mick] 1 tab PO DAILY 01/20/13 [Last Taken 12/06/18 08:00] Omeprazole [Prilosec 20 mg] 20 mg PO DAILY 01/20/13 [Last Taken 12/06/18 08:00] Fluticasone Nasal [Flonase Nasal [place] (RX)] 05/19/13 [Last Taken 06/20/13] Rivaroxaban [Xarelto 10mg (RX)] 05/19/13 [Last Taken 12/05/18 21:00] Metoprolol Succinate Xr [Toprol Xl 50 mg (RX)] 100 mg PO DAILY 06/20/13 [Last Taken 12/06/18 08:00] Lasix 20 mg PO DAILY 06/14/18 [Last Taken 12/05/18 08:00] Amiodarone HCl 200 mg PO BID 08/01/18 [Last Taken 12/06/18 08:00] Iron 08/01/18 [Last Taken 08/01/18 07:00] Spironolactone 12.5 mg PO DAILY 11/01/18 [Last Taken 12/06/18 08:00] - NPO status NPO Status: no food or drink >8 hours - Anes Hx Anes Hx: no prior problems - Smoking Hx Smoking Status: Never smoked - Family Anes Hx Family Hx Anesthesia Complications: NONE ANE Labs/Vital Signs - Labs Result Diagrams: 12/06/18 09:40 - Vital Signs Vital Signs: reviewed preoperatively; see RN documention for details Height: 180 cm Weight: 83.9 kg ANE Physical Exam - Airway Neck exam: FROM Mallampati Score: Class 2 Mouth exam: normal dental/mouth exam - Pulmonary Pulmonary: no respiratory distress - Cardiovascular Cardiovascular: irregularly irregular - ASA Status ASA Status: III ANE Anesthesia Plan Anesthesia Plan: GA with mask
--- NOTE | 2018-12-06 12:24 | PDTEE1 ---
LAYO Cardioversion Procedure Procedure: electrical cardioversion Indications: atrial fibrillation Consent: signed and in chart Anticoagulation: eliquis Procedural Details: Pads were placed in anterior-posterior position. Synchronized cardioversion attempt #1: 200J Results: normal sinus rhythm Conclusions: successful cardioversion Patient Problems: Problems Problem Status Onset Atrial fibrillation and flutter Active Jaundice Active Cholecystitis chronic, acute Acute Avulsion, finger tip Acute
--- NOTE | 2018-12-06 15:50 | ECHO ---
[email or web address] [address] [address] Main: [phone] Echocardiography Examination Transthoracic Name: MILA DYE MR#: [id number] Study Date: 12/06/2018 Study Time: 12:01 PM Date of : 1940 Age: 78 year(s) Height: 177 cm (69.69 in.) Weight: 83.92 kg (185 lb.) BSA: 2.01 m2 Gender: Male Examination: Echo Contrast: Image Quality: Good Rhythm: Normal sinus rhythm Heart Rate: 52 bpm BP: 94 mmHg/65 mmHg Indication: Post Cardioversion Procedure Staff Referring Physician: Liquor Maker: Mehrdad Christiansen RDCS Reading Physician: Tom Worley MD Requesting Provider: Ordering Physician: Tom Worley MD Indication: Post Cardioversion Measurements Chambers AV/MV Label Value Normal Value Label Value Normal Value EF lower range (%) 55 % AR PHT 0.95 s EF upper range (%) 60 % AR PHT 952 ms IVSd, 2D 0.8 cm (0.6cm - 1.1cm) AR Vena contracta 0.4 cm IVSd, MM 1 cm (0.6cm - 0.9cm) AR Vmax 4.34 m/s LVDd, 2D 5.9 cm (4.2cm - 5.9cm) AR VTI 261 cm LVDd, MM 5.2 cm (4.2cm - 5.9cm) AV PGmax 6 mmHg LVDs, 2D 4.1 cm (2.1cm - 4cm) AV PGmean 4 mmHg LVDs, MM 3.6 cm (2cm - 3.8cm) AV Vmax 1.26 m/s LVEF, 2D 57 % (54% - 74%) JOHANNE (continuity eq. 1.8 cm2 LVOT PGmax 2 mmHg Vmax) LVOT PGmean 1 mmHg JOHANNE D (continuity eq. 1.5 cm2 LVOT Vmax 0.64 m/s (0.7m/s - 1.1m/s) VTI) LVOT Vmean 0.41 m/s MV A Vmax 0.52 m/s LVOTd 2.1 cm (1.9cm - 2.1cm) MV E' lateral 0.11 m/s LVPWd, 2D 1.1 cm (0.6cm - 1cm) MV E' mean 0.1 m/s LVPWd, MM 1.2 cm (0.6cm - 1cm) MV E' septal 0.08 m/s TAPSE 2.2 cm MV E Vmax 0.66 m/s LA Volume, BP 86 ml (18ml - 58ml) MV E/A 1.27 LADs, 2D 3.5 cm (3cm - 4cm) MV E/E' lateral 6.1 MV E/E' mean 6.95 Patient: MILA DYE Study Date: 12/06/2018 Page 1 of 3 12:01 PM LAESV index, BP 42.8 ml/m2 MV E/E' septal 8.6 (0.45 - 1.25) Additional Vessels TV/PV Label Value Normal Value Label Value Normal Value AoRoot, MM 3.3 cm (2.2cm - 3.7cm) RA Pressure 5 mmHg RVSP 30 mmHg TR Pmax 25 mmHg TR Vmax 2.48 m/s [place] End hillman Juan 0.8 cm/s PV PGmax 4 mmHg PV Vmax, Caliper 1 m/s (0.6m/s - 0.9m/s) Conclusions Overall Conclusions: No pericardial effusion. Left ventricle end-diastolic dimension at the upper limits of normal. Ejection fraction 60%. Mild aortic insufficiency. Findings Left Ventricle: Left ventricle is normal in size. Normal global systolic left ventricular function. The EF is visually estimated to be 60 %. EF range is estimated at 55 % - 60 %. Left ventricle wall thickness is normal. There are no regional wall motion abnormalities. Grade I Diastolic Dysfunction. No LV hypertrophy. Right Ventricle: Normal size right ventricle. Right ventricular systolic function is normal. Left Atrium: The left atrium is moderately dilated. Right Atrium: The right atrium is moderately dilated. Mitral Valve: Mild mitral regurgitation. There is mild mitral thickening. Aortic Valve: There is mild thickening of the aortic cusps.. Mild aortic regurgitation is present. There is no aortic stenosis. The aortic valve is trileaflet. Tricuspid Valve: Mild tricuspid regurgitation. Right Ventricular systolic pressure is measured at 30 mmHg. Pulmonary artery pressure normal. Pulmonic Valve: Pulmonic leaflets are normal in appearance and function. Mild pulmonic valve regurgitation is present. Aorta: The aorta is normal. The aortic root size in M-mode measures 3.3 cm. Aorta Measurements AoRoot, MM is 3.3 cm. Great Vessels: The IVC is normal size.. Pericardium: No pericardial effusion. Exam Details Procedure Ordered: Echo Procedure Status: Routine study Image Quality: Good Facility Location: Cardiac Echo 1 Patient: MILA DYE Study Date: 12/06/2018 Page 2 of 3 12:01 PM (No Signature Object) Patient: MILA DYE Study Date: 12/06/2018 Page 3 of 3 12:01 PM [id number]
--- NOTE | 2018-12-08 09:52 | CPEKG ---
Test Reason : OPEN Blood Pressure : / mmHG Vent. Rate : 075 BPM Atrial Rate : 000 BPM P-R Int : 180 ms QRS Dur : 120 ms QT Int : 376 ms P-R-T Axes : 000 -02 000 degrees QTc Int : 420 ms Atrial fibrillation Nonspecific intraventricular conduction delay Nonspecific repol abnormality, diffuse leads atrial fibrillation was new in comparison to prior Confirmed by Zurdo Linder ([id number]) on 12/08/2018 9:51:50 AM Referred By: Tom Worley Confirmed By:Zurdo Linder
--- NOTE | 2018-12-08 09:54 | CPEKG ---
Test Reason : OPEN Blood Pressure : / mmHG Vent. Rate : 052 BPM Atrial Rate : 052 BPM P-R Int : 205 ms QRS Dur : 122 ms QT Int : 484 ms P-R-T Axes : 044 -14 177 degrees QTc Int : 451 ms Pacemaker spikes or artifacts Sinus rhythm Nonspecific intraventricular conduction delay Nonspecific repol abnormality, diffuse leads atrial fibrillation was noted on prior spikes noted appear to be artifactual Confirmed by Zurdo Linder ([id number]) on 12/08/2018 9:53:56 AM Referred By: ZOILA BARRERA Confirmed By:Zurdo Linder
== END 2018-12-06 13:36 | disposition home or self-care (01) ==
LOC: FCATH 09:11
PROVIDERS: ATTEND Internal Medicine Interventional Cardiology
PROC: 5A2204Z Restoration of Cardiac Rhythm, Single (ICD-10-PCS; principal; 2018-12-06)
DX: I48.1 Persistent atrial fibrillation (principal); I42.9 Cardiomyopathy, unspecified; D64.9 Anemia, unspecified; K21.9 Gastro-esophageal reflux disease without esophagitis; G47.33 Obstructive sleep apnea (adult) (pediatric); Z79.01 Long term (current) use of anticoagulants; Z82.49 Family history of ischemic heart disease and other diseases of the circulatory system; Z80.8 Family history of malignant neoplasm of other organs or systems
CPT/HCPCS: J0461; J2704